=== PATIENT | female | born 1935 | race Caucasian/White ===

== ENCOUNTER 2017-12-21 08:35 | Outpatient (CLI) | payer MEDICARE ==
--- NOTE | 2017-12-21 10:18 | RAD ---
RIGHT HIP TWO VIEWS: Indication: Right hip pain. Comparison: 03-09-15 FINDINGS: Right hip is partially obscured by electronic device from spinal stimulator. There is moderate osteoa rthritis. Degenerative change is seen in the symphysis pubis. Partially imaged hardware at the lower lumbar spine is present. There are pelvic phleboliths. Degenerative change is seen at each sacroiliac joint. IMPRESSION: 1. Limited visualization right hip due to overlying electronic device from spinal stimulator. 2. There is scattered osseous degenerative change without acute osseous abnormality identified, withi n limitations. POS: [facility]
== END 2017-12-21 08:36 | disposition home or self-care (01) ==
LOC: RAD 08:35
PROVIDERS: ATTEND Family Medicine
DX: M16.11 Unilateral primary osteoarthritis, right hip (principal)

== ENCOUNTER 2018-04-22 16:00 | Outpatient (CLI) | payer MEDICARE ==
--- NOTE | 2018-04-22 17:12 | RAD ---
RADIOGRAPH ABDOMEN TWO VIEW SERIES FOUR VIEWS PROVIDED 04/22/18 INDICATION: Abdominal distention. FINDINGS: Partially imaged cardiac pacing device is present. There are electronic leads overlying the visualize d spine. Lower lumbar spinal hardware is in place. No significant abnormality at the lung base. No free air beneath the hemidiaphragms. There is moderat e retained fecal material in the colon. No evidence of bowel obstruction. IMPRESSION: No acute abnormality. POS: [facility]
== END 2018-04-22 16:01 | disposition home or self-care (01) ==
LOC: SCSRAD 16:00
PROVIDERS: ATTEND Family Medicine
DX: R14.0 Abdominal distension (gaseous) (principal)
CPT/HCPCS: 74019

== ENCOUNTER 2018-05-03 10:34 | Outpatient (CLI) | payer MEDICARE ==
[~2018-05-03 10:34] MED LIST: ISOVUE-370 76%-LOCM 1 ML ONE
--- NOTE | 2018-05-03 14:51 | CT ---
CT ABDOMEN AND PELVIS WITH CONTRAST: HISTORY: Abdominal pain. Bloating and pain x 6 months. Difficulty controlling bowel. History of breast canc er. Bilateral mastectomy. COMPARISON: None. FINDINGS: Calcified granuloma in the middle lobe. Patchy interstitial opacities and ground-glass opacities are presumed to be due to chronic change.. A 4 mm bleb in the right lower lobe. Dependent atelectatic changes are noted. Heart size is enlarged. No significant pericardial fluid. There is a moderate hiatal hernia. Hypoattenuation of the liver due to hepatic steatosis. There is a well circumscribed hypodensity in the left hepatic lobe, just underneath the diaphragm, measuring 1.3 x 1.4 cm. Attenuation coefficien t is 32 Hounsfield units. Portal vein is patent. Spleen, pancreas, and adrenal glands are unremarkable. No gastrohepatic, retrocrural, or periportal lymphadenopathy. Symmetric enhancement of the kidneys. The visualized inferior and extrarenal collecting systems do n ot demonstrate any obstructive uropathy. Atherosclerosis of a nonaneurysmal aorta. Gastric mucosa, duodenum, and multiple normal-caliber small bowel loops are noted. The ileocecal arben ction is normal. Appendix is not appreciated. There is contrast and fecal material in a nondistende d, nondilated colon. Occasional diverticulum in the left hemicolon. No diverticulitis. Stable fusion changes of the spine. IMPRESSION: 1. Moderate hiatal hernia. 2. No evidence of small bowel obstruction. 3. Visualized colon is grossly unremarkable. 4. Hepatic steatosis. 5. Complex cyst in the left hepatic lobe, just underneath the diaphragm. POS: [facility]
== END 2018-05-03 10:35 | disposition home or self-care (01) ==
LOC: BICCT 10:34
PROVIDERS: ATTEND Family Medicine
DX: R14.0 Abdominal distension (gaseous) (principal); K44.9 Diaphragmatic hernia without obstruction or gangrene; K76.0 Fatty (change of) liver, not elsewhere classified; K76.89 Other specified diseases of liver
CPT/HCPCS: 74160; 82565

== ENCOUNTER 2018-06-01 11:07 | Outpatient (CLI) | payer MEDICARE ==
--- NOTE | 2018-06-01 13:47 | CT ---
CT ABDOMEN PERFORMED WITH AND WITHOUT CONTRAST ENHANCEMENT: History: Follow up of liver mass noted on previous CT exam. Breast cancer with bilateral mastectomy 2 0 years ago, with reconstruction. Comparison: 05-03-18 FINDINGS: The lung bases are clear of infiltrative process. There are some changes of some minimal linear scar atelectasis. Moderate hiatal hernia is seen. There appears to be intracapsular rupture of a partially visualized left breast implant. The hypodense lesion seen within the left lobe of the liver near the dome is actually very difficult to visualize on either the noncontrast or immediate arterial phase imaging. CT Hounsfield unit number s do not change between the noncontrast arterial or portal venous phase images. This density is sligh tly oblong in shape with a maximum dimension of 2 cm. Lack of enhancement would suggest a benign etio logy, possibly a complex cyst. The spleen, pancreas, and gallbladder regions are unremarkable. The sp honey measures 11 cm in length. Right and left adrenal glands are normal in appearance. The right and left kidneys are within normal limits of size. Slight prominence to the right extrarenal pelvis and proximal ureter but not signific antly dilated in appearance. No significant periaortic or mesenteric adenopathy. IMPRESSION: 1. 2 cm hypodense lesion within the liver which does not show enhancement. It may represent some type of complex cyst. Given the history of breast cancer, it is probably advisable to obtain a 3-6 month follow up to ensure stability, depending upon clinical and lab findings. 2. Moderately large hiatal hernia. POS: [facility]
== END 2018-06-01 11:08 | disposition home or self-care (01) ==
LOC: BICCT 11:07
PROVIDERS: ATTEND Internal Medicine Gastroenterology
DX: K76.0 Fatty (change of) liver, not elsewhere classified (principal); K76.9 Liver disease, unspecified; K21.9 Gastro-esophageal reflux disease without esophagitis; R19.00 Intra-abdominal and pelvic swelling, mass and lump, unspecified site; K44.9 Diaphragmatic hernia without obstruction or gangrene; Z86.010 Personal history of colon polyps; Z83.71 Family history of colonic polyps
CPT/HCPCS: 74170; 82565

== ENCOUNTER 2020-05-31 11:06 | Outpatient (CLI) | payer MEDICARE, OTHER ==
--- NOTE | 2020-05-31 12:33 | CT ---
CT OF THE ABDOMEN WITH IV CONTRAST INDICATION: 84-year-old female with history of liver disease and breast cancer COMPARISON: CT the abdomen with and without contrast dated June 01, 2018 FINDINGS: ABDOMEN: Lung bases: There is a moderate size hiatal hernia. Lung bases are clear. Liver: No suspicious enhancing lesion is seen within the liver. There is a 2.1 cm cyst involving the hepatic dome, adjacent to the IVC which is stable to the prior exam.. Gallbladder: Normal appearing. Pancreas: Normal. Adrenal glands: Normal. Spleen: Normal. Kidneys and ureters: Normal. No hydronephrosis. Vasculature: There are severe vascular calcifications seen involving the visualized vasculature. Lymph nodes:No lymphadenopathy. Free fluid in abdomen:No free fluid is evident. Osseous structures: There is postsurgical change of a posterior interbody fusion at L4-5. 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 There is a dorsal column stimulator projecting beyond the [id number] into the thoracic spinal level. There is scattered degenerative and osteoarthritic changes. Soft tissues:Normal. IMPRESSION: 1. No suspicious focal hepatic lesion identified. Stable hepatic dome cyst.
[2020-05-31] MEDS ORDERED: Iopamidol 370 76% 100 ML VIAL ONE (14:16)
== END 2020-05-31 11:07 | disposition home or self-care (01) ==
LOC: CT 11:06
PROVIDERS: ATTEND Physician Assistant Medical
DX: K76.9 Liver disease, unspecified (principal); K21.9 Gastro-esophageal reflux disease without esophagitis; R10.13 Epigastric pain; K76.89 Other specified diseases of liver; Z86.010 Personal history of colon polyps; Z80.0 Family history of malignant neoplasm of digestive organs; Z83.71 Family history of colonic polyps
CPT/HCPCS: 74170; Q9967

== ENCOUNTER 2021-12-01 11:15 | Inpatient (IN) | payer MEDICARE, OTHER ==
[2021-12-01] MEDS ORDERED: Fentanyl 100 MCG/2 ML VIAL ONE ×3 (12:10→13:29)
[2021-12-01] MEDS ORDERED: PROPOFOL 20 ML ONE (12:53)
[2021-12-01 13:01] LABS: #Eosinphils 0.3 thou/uL (0.0-0.7); #Monocytes 0.4 thou/uL (0.11-0.59); #Neutrophils 4.3 thou/uL (1.40-6.50); %Basophils 0.3 % (0.0-1.0); %Eosinophils 4.5 % (0.0-10.0); %Lymphocytes 16.3 % (21.0-51.0); %Monocytes 6.6 % (0.0-10.0); %Neutrophils 72.3 % (42.0-75.0); Hemoglobin 14.3 g/dL (12.0-16.0); Mean Corpuscular HGB CONC 33.9 g/dL (32.0-36.0); Mean Platelet Volume 8.9 fL (7.4-10.4); Platelet Count 109 thou/uL (130-400); RBC Distribution Width 12.5 % (11.5-14.5); Red Blood Cell (RBC) Count 4.22 mill/uL (4.20-5.40); White Blood Cell (WBC) Count 5.9 thou/uL (4.8-10.8)
[2021-12-01 13:38] LABS: ALT (SGPT) 38 U/L (8-55); AST (SGOT) 38 U/L (5-34); Albumin 3.7 g/dL (3.4-4.8); Alkaline Phosphatase 79 U/L (40-110); Anion Gap 13 mmol/L (10-20); BUN (Urea Nitrogen) 17 mg/dL (9.8-20.1); Bilirubin, Total 0.9 mg/dL (0.2-1.2); Calc. Creatinine Clearance 0 mL/min (70-130); Calcium 9.1 mg/dL (7.8-10.44); Carbon Dioxide 22 mmol/L (23-31); Chloride 107 mmol/L (98-107); Globulin 2.7 g/dL (2.4-3.5); Glucose 219 mg/dL (83-110); Potassium 4.3 mmol/L (3.5-5.1); Protein, Total 6.4 g/dL (5.8-8.1); Sodium 138 mmol/L (136-145)
[2021-12-01] MEDS ORDERED: Morphine 4 MG/ML VIAL ONE (14:03)
[2021-12-01] MEDS ORDERED: Ondansetron PF 4 MG/2 ML Vial ONE (14:03)
[2021-12-01] MEDS ORDERED: HYDROcodone/Acetaminophen 5/325 mg Tablet PO PRN (15:24)
[2021-12-01] MEDS ORDERED: Ondansetron ODT 4 MG TAB PO PRN (15:46)
[2021-12-01] MEDS ORDERED: Dextrose 5% in Water 1,000 ML IV PRN (15:46)
[2021-12-01] MEDS ORDERED: Ondansetron PF 4 MG/2 ML Vial IVP PRN (15:46)
[2021-12-01] MEDS ORDERED: Dextrose 50% Abboject 50 ML SYRINGE SLOW IVP PRN (15:46)
[2021-12-01 15:58] VITALS: BMI 26.9
[2021-12-01] MEDS ORDERED: Methocarbamol 500 MG TAB PO PRN (15:59)
[2021-12-01] MEDS ORDERED: Acetaminophen 500 MG TAB PO SCH ×3 (16:00→21:00)
[2021-12-01] MEDS: Gabapentin 300 MG CAP PO SCH ×2 (17:22→20:34)
[2021-12-01] MEDS: Ibuprofen 600 MG TAB PO SCH ×2 (17:23→23:00)
[2021-12-01] MEDS: Carvedilol 6.25 MG TAB PO SCH (17:23)
[2021-12-01] MEDS: HYDROcodone/Acetaminophen 10/325 mg Tablet PO SCH ×2 (17:25→20:36)
[2021-12-01] MEDS: Acetaminophen 325 MG TAB PO SCH ×2 (17:30→23:00)
[2021-12-01] MEDS: HumaLOG 300 UNITS/3 ML VIAL SC PRN ×2 (17:35→22:02)
[2021-12-01] MEDS: Polyethylene Glycol 3350 17 GM Packet PO SCH (20:34)
[2021-12-01] MEDS: Atorvastatin Calcium 20 MG TAB PO SCH (20:35)
[2021-12-01] MEDS ORDERED: Famotidine 20 MG TAB PO SCH (21:00)
[2021-12-01] MEDS: Temazepam 15 MG CAP PO PRN (22:02)
[2021-12-02] MEDS: HYDROcodone/Acetaminophen 10/325 mg Tablet PO SCH ×3 (01:30→08:46)
[2021-12-02] MEDS: Ibuprofen 600 MG TAB PO SCH (04:00)
[2021-12-02] MEDS: Levothyroxine Sodium 75 MCG TAB PO SCH (05:35)
[2021-12-02] MEDS: Acetaminophen 325 MG TAB PO SCH (05:35)
[2021-12-02 05:36] LABS: Bacteria/HPF 4+ HPF (None Seen); Bilirubin Negative (Negative); Blood, Urine Negative (Negative); Clarity Turbid (Clear); Glucose, Urine (Dipstick) Greater than 1000 mg/dL (Negative); Ketone, Urine Trace mg/dL (Negative); Leukocyte 75 Leu/uL (Negative); Nitrite Negative (Negative); Protein, Urine (Dipstick) 10 mg/dL (Neg-Trace); RBC/HPF 0-3 HPF (0-3); Specific Gravity, Urine 1.033 (1.002-1.036); Squamous Epithelial 0-3 HPF (0-3); pH, Urine 5.5 (5.0-9.0)
[2021-12-02 05:50] LABS: #Basophils 0.1 thou/uL (0.0-0.2); #Eosinphils 0.4 thou/uL (0.0-0.7); #Lymphocytes 1.5 thou/uL (1.20-3.40); #Monocytes 0.6 thou/uL (0.11-0.59); #Neutrophils 3.7 thou/uL (1.40-6.50); %Basophils 0.9 % (0.0-1.0); %Eosinophils 6.6 % (0.0-10.0); %Lymphocytes 23.3 % (21.0-51.0); %Monocytes 10.1 % (0.0-10.0); Hemoglobin 12.9 g/dL (12.0-16.0); Mean Corpuscular HGB CONC 33.8 g/dL (32.0-36.0); Mean Corpuscular Hemoglobin 34.3 pg (27.0-31.0); Mean Platelet Volume 8.5 fL (7.4-10.4); Platelet Count 116 thou/uL (130-400); RBC Distribution Width 12.7 % (11.5-14.5); Red Blood Cell (RBC) Count 3.75 mill/uL (4.20-5.40); White Blood Cell (WBC) Count 6.3 thou/uL (4.8-10.8)
[2021-12-02] MEDS: HumaLOG 300 UNITS/3 ML VIAL SC PRN ×3 (06:00→23:01)
[2021-12-02 06:05] LABS: Anion Gap 12 mmol/L (10-20); BUN (Urea Nitrogen) 24 mg/dL (9.8-20.1); Calc. Creatinine Clearance 35 mL/min (70-130); Calcium 8.9 mg/dL (7.8-10.44); Carbon Dioxide 24 mmol/L (23-31); Chloride 105 mmol/L (98-107); Glucose 168 mg/dL (83-110); Magnesium 2.1 mg/dL (1.6-2.6); Phosphorus 5.1 mg/dL (2.3-4.7); Potassium 4.5 mmol/L (3.5-5.1); Sodium 136 mmol/L (136-145)
[2021-12-02 06:17] LABS: SARS-CoV-2 NAA Rapid Test Not Detected (NotDetected)
[2021-12-02] MEDS ORDERED: Sodium Chloride 0.9% 500 ML IV SCH (08:30)
[2021-12-02] MEDS ORDERED: tiZANidine HCl 4 MG TAB PO SCH (09:00)
[2021-12-02] MEDS: Gabapentin 300 MG CAP PO SCH ×4 (10:25→20:14)
[2021-12-02] MEDS: Cholecalciferol 1,000 UNITS (25 MCG) TAB PO SCH (10:26)
[2021-12-02] MEDS: Folic Acid 1 MG TAB PO SCH (10:26)
[2021-12-02] MEDS: Carvedilol 6.25 MG TAB PO SCH (10:26)
[2021-12-02] MEDS: tiZANidine HCl 4 MG TAB PO PRN ×2 (10:27→22:06)
[2021-12-02] MEDS: Polyethylene Glycol 3350 17 GM Packet PO SCH ×2 (10:27→22:03)
[2021-12-02] MEDS ORDERED: Hydrocortisone Sod Succ/PF 100 mg/2 ml Vial IVP SCH ×2 (11:15→22:00)
[2021-12-02] MEDS: Acetaminophen/Codeine 30-300mg Tablet PO SCH ×3 (12:14→20:14)
[2021-12-02] MEDS ORDERED: Carvedilol 6.25 MG TAB PO SCH (17:00)
[2021-12-02] MEDS: Atorvastatin Calcium 20 MG TAB PO SCH (20:14)
[2021-12-02] MEDS: cefTRIAXone\\ROCEPHIN 2 GM in Sodium Chloride 0.9% 100 ML IVPB SCH (22:03)
[2021-12-02] MEDS: Temazepam 15 MG CAP PO PRN (22:06)
[2021-12-02] MEDS: Melatonin 3 MG TAB PO PRN (22:07)
[2021-12-03 00:11] LABS: Bacteria/HPF 4+ HPF (None Seen); Bilirubin Negative (Negative); Blood, Urine Negative (Negative); Clarity Clear (Clear); Glucose, Urine (Dipstick) 30 mg/dL (Negative); Ketone, Urine Negative (Negative); Leukocyte 250 Leu/uL (Negative); Nitrite Negative (Negative); Protein, Urine (Dipstick) Negative (Neg-Trace); RBC/HPF None Seen HPF (0-3); Specific Gravity, Urine 1.014 (1.002-1.036); Squamous Epithelial 0-3 HPF (0-3); Urobilinogen Normal mg/dL (Less than 2); pH, Urine 5.5 (5.0-9.0)
[2021-12-03 00:13] LABS: Urine Culture Reflex Yes Yes
[2021-12-03] MEDS ORDERED: Sodium Chloride 0.9% 500 ML IV SCH (04:30)
[2021-12-03] MEDS ORDERED: Acetaminophen 500 MG TAB PO SCH (04:30)
[2021-12-03] MEDS: Acetaminophen/Codeine 30-300mg Tablet PO SCH ×4 (04:41→20:18)
[2021-12-03] MEDS: Levothyroxine Sodium 75 MCG TAB PO SCH (04:49)
[2021-12-03] MEDS ORDERED: Calcium Chloride 13.6 MEQ in Sodium Chloride 0.9% 100 ML IVPB SCH (05:00)
[2021-12-03] MEDS: HumaLOG 300 UNITS/3 ML VIAL SC PRN ×3 (05:54→20:28)
[2021-12-03] MEDS ORDERED: Hydrocortisone Sod Succ/PF 100 mg/2 ml Vial IVP SCH (06:00)
[2021-12-03 07:27] LABS: Anion Gap 12 mmol/L (10-20); BUN (Urea Nitrogen) 28 mg/dL (9.8-20.1); Calc. Creatinine Clearance 39 mL/min (70-130); Calcium 11.9 mg/dL (7.8-10.44); Carbon Dioxide 20 mmol/L (23-31); Chloride 102 mmol/L (98-107); Glucose 149 mg/dL (83-110); Magnesium 1.9 mg/dL (1.6-2.6); Phosphorus 4.4 mg/dL (2.3-4.7); Potassium 4.5 mmol/L (3.5-5.1); Sodium 129 mmol/L (136-145)
[2021-12-03] MEDS ORDERED: Sodium Chloride 0.9% 1,000 ML IV SCH ×2 (07:45→08:00)
[2021-12-03] MEDS ORDERED: Carvedilol 6.25 MG TAB PO SCH (08:00)
[2021-12-03 08:02] LABS: #Eosinphils 0.1 thou/uL (0.0-0.7); #Lymphocytes 0.7 thou/uL (1.20-3.40); #Monocytes 0.4 thou/uL (0.11-0.59); #Neutrophils 5.6 thou/uL (1.40-6.50); %Basophils 0.1 % (0.0-1.0); %Eosinophils 0.9 % (0.0-10.0); %Lymphocytes 10.7 % (21.0-51.0); %Monocytes 5.1 % (0.0-10.0); %Neutrophils 83.2 % (42.0-75.0); Mean Corpuscular HGB CONC 33.5 g/dL (32.0-36.0); Mean Corpuscular Hemoglobin 33.9 pg (27.0-31.0); Platelet Count 81 thou/uL (130-400); RBC Distribution Width 12.3 % (11.5-14.5); Red Blood Cell (RBC) Count 2.96 mill/uL (4.20-5.40); White Blood Cell (WBC) Count 6.8 thou/uL (4.8-10.8)
[2021-12-03] MEDS: Hydrocortisone Sod Succ/PF 100 mg/2 ml Vial IVP SCH ×3 (08:11→22:00)
[2021-12-03] MEDS: Gabapentin 300 MG CAP PO SCH ×4 (08:23→20:19)
[2021-12-03] MEDS: Cholecalciferol 1,000 UNITS (25 MCG) TAB PO SCH (08:24)
[2021-12-03] MEDS: Folic Acid 1 MG TAB PO SCH (08:24)
[2021-12-03] MEDS: Polyethylene Glycol 3350 17 GM Packet PO SCH ×2 (08:42→20:19)
[2021-12-03] MEDS ORDERED: Aspirin 325 mg Enteric Coated Tablet PO SCH (09:00)
[2021-12-03] MEDS: Atorvastatin Calcium 20 MG TAB PO SCH (20:19)
[2021-12-03] MEDS: cefTRIAXone\\ROCEPHIN 2 GM in Sodium Chloride 0.9% 100 ML IVPB SCH (22:00)
[2021-12-03] MEDS: Temazepam 15 MG CAP PO PRN (22:01)
[2021-12-03] MEDS: Melatonin 3 MG TAB PO PRN (22:01)
[2021-12-04] MEDS: Acetaminophen/Codeine 30-300mg Tablet PO SCH ×2 (03:31→09:59)
[2021-12-04] MEDS: Hydrocortisone Sod Succ/PF 100 mg/2 ml Vial IVP SCH (05:41)
[2021-12-04] MEDS: Levothyroxine Sodium 75 MCG TAB PO SCH (05:42)
[2021-12-04 05:48] LABS: #Basophils 0.1 thou/uL (0.0-0.2); #Lymphocytes 0.6 thou/uL (1.20-3.40); #Monocytes 0.5 thou/uL (0.11-0.59); #Neutrophils 6.2 thou/uL (1.40-6.50); %Basophils 1.3 % (0.0-1.0); %Eosinophils 0.5 % (0.0-10.0); %Lymphocytes 7.5 % (21.0-51.0); %Monocytes 6.7 % (0.0-10.0); Hemoglobin 10.5 g/dL (12.0-16.0); Mean Corpuscular HGB CONC 33.9 g/dL (32.0-36.0); Mean Corpuscular Hemoglobin 34.4 pg (27.0-31.0); Mean Platelet Volume 9.1 fL (7.4-10.4); Platelet Count 100 thou/uL (130-400); RBC Distribution Width 13.4 % (11.5-14.5); Red Blood Cell (RBC) Count 3.07 mill/uL (4.20-5.40); White Blood Cell (WBC) Count 7.3 thou/uL (4.8-10.8)
[2021-12-04] MEDS: HumaLOG 300 UNITS/3 ML VIAL SC PRN (06:00)
[2021-12-04 06:32] LABS: Anion Gap 12 mmol/L (10-20); BUN (Urea Nitrogen) 27 mg/dL (9.8-20.1); Calc. Creatinine Clearance 44 mL/min (70-130); Calcium 8.8 mg/dL (7.8-10.44); Carbon Dioxide 22 mmol/L (23-31); Chloride 108 mmol/L (98-107); Glucose 209 mg/dL (83-110); Phosphorus 3.6 mg/dL (2.3-4.7); Potassium 4.6 mmol/L (3.5-5.1); Sodium 137 mmol/L (136-145)
[2021-12-04 08:03] VITALS: BP 104/54; TEMP 97.8
[2021-12-04] MEDS ORDERED: Aspirin 81 mg Enteric Coated Tablet PO SCH (09:00)
[2021-12-04] MEDS ORDERED: Saccharomyces boulardii 250 MG CAP PO SCH (09:00)
[2021-12-04] MEDS: Polyethylene Glycol 3350 17 GM Packet PO SCH (09:04)
[2021-12-04] MEDS: Cholecalciferol 1,000 UNITS (25 MCG) TAB PO SCH (10:00)
[2021-12-04] MEDS: Gabapentin 300 MG CAP PO SCH ×2 (10:00→12:24)
[2021-12-04] MEDS: Folic Acid 1 MG TAB PO SCH (10:01)
== END 2021-12-04 14:07 | DRG 563 ==
LOC: ERS 11:15 → SURG A 13:54 → OBSVTOIN 12-03 15:06
PROVIDERS: ADMIT Specialist; ATTEND Specialist
DX: S52.021A Displaced fracture of olecranon process without intraarticular extension of right ulna, initial encounter for closed fracture (principal); S42.201A Unspecified fracture of upper end of right humerus, initial encounter for closed fracture; N39.0 Urinary tract infection, site not specified; Z20.822 Contact with and (suspected) exposure to COVID-19; M06.9 Rheumatoid arthritis, unspecified; G89.29 Other chronic pain; I48.91 Unspecified atrial fibrillation; I11.0 Hypertensive heart disease with heart failure; E11.9 Type 2 diabetes mellitus without complications; E03.9 Hypothyroidism, unspecified; W18.30XA Fall on same level, unspecified, initial encounter; Z90.49 Acquired absence of other specified parts of digestive tract; Z90.710 Acquired absence of both cervix and uterus; Z98.890 Other specified postprocedural states; Z79.890 Hormone replacement therapy; Z79.899 Other long term (current) drug therapy; Z79.82 Long term (current) use of aspirin; Z79.84 Long term (current) use of oral hypoglycemic drugs
CPT/HCPCS: 24505; 36415; 36416; 80048; 80053; 81003; 81015; 82533; 83735; 84100; 84484; 85025; 87077; 87086; 87186; 93005; 94760; 96374; 96375; 99156; J0696; J1720; J1815; J2270; J2405; J2704; J3010; J3490; J7030; J7050; P9045; U0002

== ENCOUNTER 2021-12-19 17:14 | Outpatient (CLI) | payer MEDICARE ==
[2021-12-20 15:19] LABS: SARS-CoV-2 PCR by NAA Not Detected (NotDetected)
== END 2021-12-19 17:15 | disposition home or self-care (01) ==
LOC: LABBT 17:14
PROVIDERS: ATTEND Internal Medicine Gastroenterology
DX: I50.9 Heart failure, unspecified (principal); R13.12 Dysphagia, oropharyngeal phase; K21.9 Gastro-esophageal reflux disease without esophagitis; K74.60 Unspecified cirrhosis of liver; Z20.822 Contact with and (suspected) exposure to COVID-19
CPT/HCPCS: U0003; U0005

== ENCOUNTER 2022-10-01 15:53 | Outpatient (CLI) | payer MEDICARE | END 2022-10-01 15:54 | disposition home or self-care (01) | LOC: BICRAD 15:53 | PROVIDERS: ATTEND Anesthesiology Pain Medicine | DX: S42.401A Unspecified fracture of lower end of right humerus, initial encounter for closed fracture (principal) ==

== ENCOUNTER 2023-05-28 08:31 | Outpatient (CLI) | payer MEDICARE, OTHER | END 2023-05-28 08:32 | disposition home or self-care (01) | LOC: BICULT 08:31 | PROVIDERS: ATTEND Family Medicine | DX: R10.84 Generalized abdominal pain (principal) | CPT/HCPCS: 76700 ==